=== PATIENT | male | born 2000 ===

== ENCOUNTER 2024-10-23 18:49 | Emergency (ER) | payer MEDICAID ==
[~2024-10-23] VITALS: Ht 187.9 cm; Wt 90.7 kg
[2024-10-23] MEDS ORDERED: diazePAM 10 MG/2 ML SYR IM ONE (19:55)
[2024-10-23 20:02] LABS: BASO # 0.1 10*3/uL (0.0-0.1); BASO % 0.3 % (0.0-1.0); EOS % 0.2 % (1.0-4.0); HEMATOCRIT 51.6 % (42.0-52.0); MEAN CELL VOLUME 85.9 fl (80.0-94.0); MEAN CORPUSCULAR HGB 28.3 pg (27.0-31.0); MEAN CORPUSCULAR HGB CONC 32.9 g/dl (33.0-37.0); MEAN PLATELET VOLUME 9.4 fl (9.6-12.3); MONO # 0.5 10*3/uL (0.1-1.0); MONO % 2.9 % (3.0-9.0); NEUT # 15.6 10*3/uL (2.3-7.9); NEUT % 89.1 % (47.0-73.0); PLATELET COUNT AUTOMATED 308 10*3/uL (130-400); RED BLOOD COUNT 6.01 10*6/uL (4.50-5.90); RED CELL DISTRI WIDTH 12.3 % (0-14.5); WHITE BLOOD COUNT 17.6 10*3/uL (4.8-10.8)
[2024-10-23 20:03] LABS: BILIRUBIN Negative (Negative); BLOOD Negative (Negative); CLARITY Clear (Clear); COLOR Yellow (Yellow); GLUCOSE Negative (Negative); KETONE Trace (Negative); LEUKO ESTERASE 1+ (Negative); NITRITE Negative (Negative)
[2024-10-23 20:09] LABS: BACTERIA 1+; MUCOUS 1+; RBC 0-2 rbc/hpf (0-2)
[2024-10-23 20:10] LABS: URINE AMPHETAMINES Negative (1000ng/ml); URINE BARBITURATES Negative (200ng/ml); URINE BENZODIAZEPINES Negative (200ng/ml); URINE CANNABINOIDS (THC) Positive (50ng/ml); URINE COCAINE Negative (300ng/ml); URINE METHADONE Negative (300ng/ml); URINE OPIATES Negative (300ng/ml); URINE PHENCYCLIDINE Negative (25ng/ml)
[2024-10-23 20:33] LABS: ALKALINE PHOSPHATASE 77 U/L (46-116); BUN 9 mg/dl (9-23); CHLORIDE 107 mmol/L (98-107); POTASSIUM 4.3 mmol/L (3.4-5.1); SGPT/ALT 14 U/L (5-49); TOTAL PROTEIN 7.8 gm/dL (6.0-8.0)
[2024-10-23 20:34] LABS: ETHYL ALCOHOL < 3.0 mg/dl (<3)
[2024-10-24] MEDS ORDERED: Ziprasidone Mesylate 20 MG VIAL IM ONE (00:55)
== END 2024-10-24 09:45 | disposition home or self-care (01) ==
LOC: ED 18:49
PROVIDERS: Nurse Practitioner Family
DX: S00.83XA Contusion of other part of head, initial encounter (principal); F43.20 Adjustment disorder, unspecified; F32.A Depression, unspecified; F44.81 Dissociative identity disorder; F12.90 Cannabis use, unspecified, uncomplicated; F17.200 Nicotine dependence, unspecified, uncomplicated; Y04.8XXA Assault by other bodily force, initial encounter; Y93.89 Activity, other specified; Y92.098 Other place in other non-institutional residence as the place of occurrence of the external cause; Y99.8 Other external cause status